=== PATIENT | female | born 1990 | race Caucasian/White ===

== ENCOUNTER 2017-11-04 14:34 | Emergency (ER) | payer SELFPAY ==
[~2017-11-04] VITALS: Ht 170.2 cm; Wt 68.0 kg
[2017-11-04 14:55] VITALS: BP 142/75
[2017-11-04] MEDS ORDERED: Methocarbamol 500mg tab ORAL ONE (15:00)
[2017-11-04] MEDS ORDERED: Ketorolac 30mg Inj IM ONE (15:00)
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
--- NOTE | 2017-11-04 15:42 | Diagnostic Imaging Report ---
EXAM: XR Left Shoulder Complete, 2 or More Views CLINICAL HISTORY: PAIN TECHNIQUE: Two or more views of the left shoulder. COMPARISON: No relevant prior studies available. FINDINGS: Bones/joints: No acute fracture. Soft tissues: No radiodense foreign body. IMPRESSION: No fracture or dislocation.
[2017-11-04] MEDS ORDERED: ROBAXIN500 MG PO (15:43)
[2017-11-04] MEDS ORDERED: TYLENOL EXTRA500 MG ORAL (15:43)
[2017-11-04] MEDS ORDERED: LIDOCAINE700 M1 TP (15:43)
--- NOTE | 2017-11-04 15:43 | Diagnostic Imaging Report ---
EXAM: XR Left Wrist Complete, 3 or More Views CLINICAL HISTORY: PAIN TECHNIQUE: Frontal, lateral and oblique views of the left wrist. COMPARISON: No relevant prior studies available. FINDINGS: Bones/joints: No acute fracture. Soft tissues: No radiodense foreign body. IMPRESSION: No acute fracture.
[2017-11-04 15:57] VITALS: BP 142/75
== END 2017-11-04 15:58 | disposition home or self-care (01) ==
LOC: EMR 15:16
DX: M25.512 Pain in left shoulder (principal); M79.642 Pain in left hand; V43.52XA Car driver injured in collision with other type car in traffic accident, initial encounter; Y92.410 Unspecified street and highway as the place of occurrence of the external cause
CPT/HCPCS: 73030; 73110; 96372; 99284; J1885